=== PATIENT | male | born 1945 | race Caucasian/White ===

== ENCOUNTER 2023-12-30 17:12 | Emergency (ER) | payer MEDICARE, OTHER, SELFPAY ==
[2023-12-30 17:14] VITALS: BP 130/65
[2023-12-30 17:17] VITALS: BP 130/65
--- NOTE | 2023-12-30 17:41 | ED.GENMED ---
History of Present Illness
General
Chief Complaint: Breathing Problem
Source: patient
Exam Limitations: none
Time Seen by Provider: 12/30/23 17:24
Travel History
Have you had any contact with someone who has COVID-19?: No
Do you have any symptoms of coronavirus? Fever > 100 degrees, chills, cough, shortness of breath, sore throat, loss of taste or smell, muscle aches, or headache?: No
History of Present Illness
History of Present Illness:
See MDM
Past History
Past History
ED Past Medical History: CAD and Other (Coronary disease with CABG in 2017, Parkinson's, chronic urinary incontinence, hypercholesterolemia, NPH, orthostatic hypotension, A-fib)
ED Past Surgical History: Cardiac
Social History
Tobacco: Former smoker
Alcohol: Occasional
Drug: None
Living: with family
Employment: Retired
Family History
Family History: Other (Father with [place], family history of Parkinson's)
Phy Exam
Physical Exam
Physical Exam:
See MDM
Scores
Heart Failure Risk
Heart Failure Risk Score: Not Applicable
Course
Orders/Labs/Results
Orders:
Orders
12/30/23 17:38
CR Chest - 2 Views Urgent
Comment:
Reason For Exam: SOB, cough
12/30/23 18:18
COVID-19 Antigen Urgent
Source: Nasal Swab
Complete Blood Count/With Diff Urgent
Comprehensive Metabolic Panel Urgent
Influenza A+B Rapid Molecular Urgent
SHEYLA Source: Nasal Swab
Specimen Description:
Abnormal Lab Results
12/30/23
18:18
RBC 4.45 L 10^6/uL
(4.70-6.10)
Hct 38.6 L %
(39.0-52.0)
BUN 21 H mg/dl
(9-20)
ALT 54 H U/L
(0-50)
Alkaline Phosphatase 137 H U/L
(38-126)
12/30/23 18:18
12/30/23 18:18
Vital Signs
Initial and Last Documented VS:
Initial Vital Signs
Temp Pulse Resp BP Pulse Ox
98.2 F 65 23 130/65 99
12/30/23 17:14 12/30/23 17:14 12/30/23 17:14 12/30/23 17:14 12/30/23 17:14
Last Documented Vital Signs
Temp Pulse Resp BP Pulse Ox
98.2 F 60 19 140/73 97
12/30/23 17:14 12/30/23 19:21 12/30/23 19:21 12/30/23 19:21 12/30/23 19:21
MDM/Problems Addressed
Differential Diagnosis Includes:
HPI and MDM Narrative:
78-year-old male presenting with shortness of breath. Per EMS, patient had an argument with his and then patient became upset and short of breath. Patient demanding nasal cannula. When he arrived, he appears well appearing and nontoxic.
Lungs are clear. Patient is upset that he cannot breathe but he is speaking in full sentences. He has no leg edema. Given his issues, will obtain chest x-ray and blood work
Physical exam
General: Well appearing and non-toxic
HEENT: protecting airway
Neck: appears supple
CV: No evidence of cyanosis. Regular rate and rhythm
Resp: No accessory muscle use. Lungs clear
Abd: Non-distended
Extremities: No deformities. No leg edema
Neuro: alert
Psych: Normal affect
Skin: Intact
Problems Addressed including Acute and Chronic Conditions affecting care:
1. Shortness of breath
Acuity: acute
Prognosis: stable
Details: Lungs are clear. Will obtain chest x-ray and viral testing and will EKG
Updates
On reevaluation, patient feeling better. Chest x-ray clear. Blood work without clinical significance. Patient feels comfortable going home
Differential Diagnosis (but not limited to): Pneumonia, viral syndrome, anxiety
Testing considered: D-dimer but he is neither tachycardic nor hypoxic
Drug therapy (if applicable): OTC meds, please see d/c instruction regarding Rx drugs
Amount and/or Complexity of Data Reviewed
Clinical info obtained from: Patient
External data reviewed: N/A
Labs I independently reviewed (but not limited to): No leukocytosis
Radiology: N/A
Pulse Ox: not hypoxic
EKG independently reviewed: N/A
Corporate Scheduler: Sinus rhythm
Critical Care: N/A
Risk of Complication:
Social Determinants of health: Good social support
Discussed with other providers: N/A
Escalation of Care includes Admit/Obs: After being observed in the Emergency Department, pt stable for discharge.
Occasional wrong word or 'sound a like' substitutions may have occurred due to the inherent limitations of voice recognition software. Read the chart carefully and recognize, using context, where substitutions have occurred.
*Critical Care Note
Total Time (30-74mins, 75-104mins- exclusive of procedures): Not Applicable
ED Attending Note
-
Portions of this chart may have been created with voice recognition software.� Occasional wrong word or��sound alike� substitutions may have occurred due to the inherent limitations of voice recognition software.
Discharge Plan
Departure
Patient Disposition: Home (Routine Discharge)
Date of Disposition: 12/30/23
Time of Disposition: 19:41
Patient with high blood pressure during this ER visit?: Yes
Discharge Problem:
Dyspnea
Instructions: Shortness of Breath (Dyspnea) (DC), BLOOD PRESSURE
Prescriptions:
No Action
aspirin 81 MG tablet,chewable
81 mg PO DAILY
midodrine 10 MG tablet
10 mg PO TID
donepezil 10 MG tablet
10 mg PO HS
cholecalciferol (vitamin D3) 2,000 UNITS tablet
2,000 units PO DAILY
atorvastatin 20 mg tablet
20 mg PO DAILY
acetaminophen 500 mg Tablet
1,000 mg PO TIDPRN PRN (Reason: MILD PAIN)
escitalopram oxalate 20 mg tablet
15 mg PO HS
tamsulosin 0.4 MG capsule
0.4 mg PO DAILY
memantine 10 MG tablet
10 mg PO BID
polyethylene glycol 3350 [Miralax] 17 gram Powder In Packet
17 g PO DAILYPRN PRN (Reason: constipation)
amiodarone 200 mg Tablet
200 mg PO DAILY
Rx Instructions:
TAKE BID THRU 10/31/23 THEN CHANGE TO ONCE DAILY ON 11/01/23
Referrals:
Elisa Patricia PA [Family Provider] -
Activity Restrictions/Additional Instructions:
Please return for any worsening symptoms.
You may return at any time if you have further concerns.
Please follow up with your doctor at the first available appointment, preferably this week.
Thank you for choosing [facility].
Interventions
Interventions:
*Risk Screen - Suicide Last Done: 12/30/23 17:22
*General Assessment Last Done: 12/30/23 17:20
*Neglect/Abuse Screening Last Done: 12/30/23 17:22
ED- Cardiac Assessment Last Done: 12/30/23 17:28
ED- Pulmonary Assessment Last Done: 12/30/23 17:28
[2023-12-30 18:00] VITALS: BP 135/73
[2023-12-30 18:39] LABS: % Basophils 0.8 % (0-2); % Eosinophils 2.3 % (0-6); % Immature Granulocytes 0.2 % (0-0.5); % Lymphocytes 26.9 % (20.5-51.1); % Monocytes 8.2 % (1.7-9.3); % Neutrophils 61.6 % (42.2-75.2); Absolute Basophils 0.1 10^3/uL (0-0.2); Absolute Eosinophils 0.1 10^3/uL (0-0.7); Absolute Lymphocytes 1.6 10^3/uL (1.2-3.4); Absolute Monocytes 0.5 10^3/uL (0.1-0.6); Absolute Neutrophils 3.7 10^3/uL (1.4-6.5); Hematocrit 38.6 % (39.0-52.0); Hemoglobin 13.2 g/dL (13.0-18.0); Mean Corp Hgb Conc. 34.2 g/dL (33.0-37.0); Mean Corpuscular Hgb 29.7 pg (27.0-31.0); Mean Corpuscular Volume 86.7 fL (80.0-94.0); Nucleated Red Blood Cells % 0 % (-); Platelet Count 231 10^3/uL (130-400); Red Blood Cell Count 4.45 10^6/uL (4.70-6.10); Red Cell Dist. Width 14.1 % (11.5-14.5); White Blood Cell Count 6.1 10^3/uL (4.8-10.8)
[2023-12-30 18:50] LABS: ALT (SGPT) 54 U/L (0-50); AST (SGOT) 41 U/L (17-59); Albumin 4.2 g/dl (3.5-5.0); Alkaline Phosphatase 137 U/L (38-126); Blood Urea Nitrogen 21 mg/dl (9-20); Calcium 9.1 mg/dl (8.4-10.2); Carbon Dioxide 24 mmol/L (22-30); Chloride 106 mmol/L (98-107); Glucose 93 mg/dl (70-99); Potassium 4.3 mmol/L (3.5-5.1); Sodium 137 mmol/L (135-145); Total Bilirubin 0.8 mg/dl (0.2-1.3); Total Protein 7.7 g/dl (6.3-8.2); eGFR > 60.00
[2023-12-30 19:03] LABS: COVID-19 Antigen Negative (Negative)
[2023-12-30 19:21] VITALS: BP 140/73
== END 2023-12-31 00:30 ==
LOC: EMR 17:12
PROVIDERS: EMERGENCY PHYSICIAN Student in an Organized Health Care Education/Training Program; FAMILY PHYSICIAN Physician Assistant Medical
DX: R06.00 Dyspnea, unspecified (principal); R06.02 Shortness of breath; Z11.52 Encounter for screening for COVID-19; Z87.891 Personal history of nicotine dependence
CPT/HCPCS: 99284; 71046; 80053; 85025; 87502; 87811

== ENCOUNTER 2024-01-02 13:06 | Emergency (ER) | payer MEDICARE, OTHER, SELFPAY ==
[2024-01-02 13:09] VITALS: BMI 25.8
[2024-01-02 13:10] VITALS: BP 130/76
[2024-01-02 13:22] VITALS: BP 123/71
[2024-01-02 13:44] LABS: % Basophils 1.4 % (0-2); % Eosinophils 3.5 % (0-6); % Immature Granulocytes 0.3 % (0-0.5); % Lymphocytes 20.4 % (20.5-51.1); % Monocytes 9.6 % (1.7-9.3); % Neutrophils 64.8 % (42.2-75.2); Absolute Basophils 0.1 10^3/uL (0-0.2); Absolute Eosinophils 0.2 10^3/uL (0-0.7); Absolute Lymphocytes 1.2 10^3/uL (1.2-3.4); Absolute Monocytes 0.6 10^3/uL (0.1-0.6); Absolute Neutrophils 3.8 10^3/uL (1.4-6.5); Hematocrit 40.1 % (39.0-52.0); Hemoglobin 13.5 g/dL (13.0-18.0); Mean Corp Hgb Conc. 33.7 g/dL (33.0-37.0); Mean Corpuscular Hgb 29.7 pg (27.0-31.0); Mean Corpuscular Volume 88.1 fL (80.0-94.0); Nucleated Red Blood Cells % 0 % (-); Platelet Count 221 10^3/uL (130-400); Red Blood Cell Count 4.55 10^6/uL (4.70-6.10); Red Cell Dist. Width 14.3 % (11.5-14.5); White Blood Cell Count 5.9 10^3/uL (4.8-10.8)
[2024-01-02 13:52] LABS: D-Dimer 1.11 ug/mlFEU (0.00-0.50)
[2024-01-02 13:54] LABS: ALT (SGPT) 43 U/L (0-50); AST (SGOT) 32 U/L (17-59); Albumin 4.1 g/dl (3.5-5.0); Alkaline Phosphatase 119 U/L (38-126); Blood Urea Nitrogen 26 mg/dl (9-20); Calcium 9.5 mg/dl (8.4-10.2); Carbon Dioxide 25 mmol/L (22-30); Chloride 103 mmol/L (98-107); Estimated Creatinine Clearance 65 ml/min; Glucose 83 mg/dl (70-99); Potassium 3.7 mmol/L (3.5-5.1); Sodium 137 mmol/L (135-145); Total Bilirubin 0.7 mg/dl (0.2-1.3); Total Protein 7.6 g/dl (6.3-8.2); eGFR > 60.00
[2024-01-02 14:00] VITALS: BP 115/58
[2024-01-02 14:07] LABS: NT-proBNP 52.8 pg/ml; Troponin I 0.055 ng/ml
[2024-01-02 15:00] VITALS: BP 120/71
--- NOTE | 2024-01-02 15:25 | ED.GENMED ---
History of Present Illness
General
Chief Complaint: Breathing Problem
Source: patient, records, family, previous radiology exam and previous hospital records
Exam Limitations: dementia
Time Seen by Provider: 01/02/24 14:28
Nursing documentation reviewed up to this point in time: agreed with
Travel History
Have you had any contact with someone who has COVID-19?: No
Do you have any symptoms of coronavirus? Fever > 100 degrees, chills, cough, shortness of breath, sore throat, loss of taste or smell, muscle aches, or headache?: No
History of Present Illness
History of Present Illness:
78-year-old male accompanied by daughter who is the patient's advocate knows his medical history very well, presents with shortness of breath intermittent for few months told that he had either infection or malignancy, underwent a bronchoscopy
apparently was inconclusive, he has intermittent shortness of breath, sometimes with exertion sometimes not, no wheezing no chest pains, no leg edema no fevers no hemoptysis not on any inhalers he is an ex-smoker, seen here few days ago similar
complaints discharged home, daughter is with him now requesting a CAT scan as recommended by pulmonary apparently the patient did not want nor tolerate a PET scan
Past History
Past History
ED Past Medical History: CAD and Other (Coronary disease with CABG in 2017, Parkinson's, chronic urinary incontinence, hypercholesterolemia, NPH, orthostatic hypotension, A-fib)
ED Past Surgical History: Cardiac
Social History
Tobacco: Former smoker
Alcohol: Occasional
Drug: None
Personal:
Living: with family
Employment: Retired
Family History
Family History: Other (Father with [place], family history of Parkinson's)
Review of Systems
Review of Systems
All Other Systems: Not applicable
Constitutional: Denies fever or fatigue
Respiratory: Reports trouble breathing; Denies cough
Cardiac: Reports no symptoms
: Reports no symptoms
Musculoskeletal: Reports no symptoms
Skin: Reports no symptoms
Neurological: Reports no symptoms
Phy Exam
Physical Exam
Physical Exam:
Physical Exam
General: Pleasant 78-year-old male cooperative
Neck: No jaundice
Heart: Rate
Lungs: no acute respiratory distress. clear bilaterally
Abdomen: Nontender
Neuro: alert and oriented. Moves all extremities
Skin: no rash
Psychiatric: cooperative
Extremities: no edema.
Scores
Heart Failure Risk
Heart Failure Risk Score: Not Applicable
Course
Orders/Labs/Results
Orders:
Orders
01/02/24 13:17
EKG [Electrocardiogram (*1)] Urgent
Reason for Study: Shortness of Breath
EKG- Treatment ONCE
01/02/24 13:26
BNP [NT-proBNP] Urgent
Complete Blood Count/With Diff Urgent
Comprehensive Metabolic Panel Urgent
D-Dimer Urgent
Troponin I Urgent
01/02/24 15:01
Add On- LAB Urgent
Tests Added?: pBNP
CT Chest With Iv Contrast Urgent
Comment:
Reason For Exam: sob lung nodule
Abnormal Lab Results
01/02/24
13:26
RBC 4.55 L 10^6/uL
(4.70-6.10)
Lymphocytes % 20.4 L %
(20.5-51.1)
Monocytes % 9.6 H %
(1.7-9.3)
D-Dimer 1.11 H ug/mlFEU
(0.00-0.50)
BUN 26 H mg/dl
(9-20)
Troponin I 0.055 H* ng/ml
01/02/24 13:26
01/02/24 13:26
Vital Signs
Initial and Last Documented VS:
Initial Vital Signs
Temp Pulse Resp BP Pulse Ox
97.6 F 61 17 130/76 99
01/02/24 13:10 01/02/24 13:10 01/02/24 13:10 01/02/24 13:10 01/02/24 13:10
Last Documented Vital Signs
Temp Pulse Resp BP Pulse Ox
97.6 F 63 16 117/71 98
01/02/24 13:10 01/02/24 17:00 01/02/24 17:00 01/02/24 17:00 01/02/24 17:00
MDM/Problems Addressed
Differential Diagnosis Includes:
Progressive malignancy infection heart failure doubt PE as symptoms are intermittent
MDM/Problems Addressed:
Shortness of
Chronic conditions affecting care:
Prior smoker dementia
Acute Exacerbation and/or Progression of Chronic Illness:
Prior smoker dementia
*Radiology
Radiology exam reviewed: preliminary read by ED provider
*Pulse Oximetry
Patient hypoxic: no
*EKG
Interpreted by ED Provider?: Yes
Interpretation: abnormal
Comparison EKG: no comparison EKG present
Heart Rate: 88
Rate: normal
Rhythm: ventricular paced
Ischemia: non-specific ST changes
*Interviewing Clerk Interpretation
Rate: normal
Interpretation: normal
Heart Rate: 88
Rhythm: ventricular paced
*Critical Care Note
Total Time (30-74mins, 75-104mins- exclusive of procedures): Not Applicable
Data Reviewed
Review of Other/Old Records Reveals: Labs and Records
Source: patient, records and family
Update Note
Update Note:
Update patient appears well here etiology not entirely clear, daughter requesting a CAT scan to look for progressive disease which is not unreasonable pulmonary notes previously visits reviewed
5:[address] looks improved to my review of the report, reviewed with the daughter given copies to have a appointment with the primary care at [facility] on Thursday
ED Attending Note
-
Portions of this chart may have been created with voice recognition software.� Occasional wrong word or��sound alike� substitutions may have occurred due to the inherent limitations of voice recognition software.
Discharge Plan
Departure
Patient Disposition: Home (Routine Discharge)
Date of Disposition: 01/02/24
Time of Disposition: 17:44
Patient with high blood pressure during this ER visit?: No
Condition: Good
Covid-19: Not Applicable
Discharge Problem:
Dyspnea
Instructions: Shortness of Breath (Dyspnea) (DC)
Prescriptions:
No Action
aspirin 81 MG tablet,chewable
81 mg PO DAILY
midodrine 10 MG tablet
10 mg PO TID
donepezil 10 MG tablet
10 mg PO HS
cholecalciferol (vitamin D3) 2,000 UNITS tablet
2,000 units PO DAILY
atorvastatin 20 mg tablet
20 mg PO DAILY
acetaminophen 500 mg Tablet
1,000 mg PO TIDPRN PRN (Reason: MILD PAIN)
escitalopram oxalate 20 mg tablet
15 mg PO HS
tamsulosin 0.4 MG capsule
0.4 mg PO DAILY
memantine 10 MG tablet
10 mg PO BID
polyethylene glycol 3350 [Miralax] 17 gram Powder In Packet
17 g PO DAILYPRN PRN (Reason: constipation)
amiodarone 200 mg Tablet
200 mg PO DAILY
Rx Instructions:
TAKE BID THRU 10/31/23 THEN CHANGE TO ONCE DAILY ON 11/01/23
Referrals:
Elisa Patricia PA [Family Provider] -
Ranjana Patricia MD [Non-Admitting Privileges] - Keep scheduled appt
Interventions
Interventions:
*Risk Screen - Suicide Last Done: 01/02/24 13:15
*General Assessment Last Done: 01/02/24 13:18
*Neglect/Abuse Screening Last Done: 01/02/24 13:15
ED- Fall Risk Assessment Last Done: 01/02/24 13:16
*ED COVID-19 Vaccine History Last Done: 01/02/24 13:10
ED- Cardiac Assessment Last Done: 01/02/24 13:20
ED- Pulmonary Assessment Last Done: 01/02/24 13:20
[2024-01-02 17:00] VITALS: BP 117/71
== END 2024-01-02 18:02 | disposition home or self-care (01) ==
LOC: EMR 13:06
PROVIDERS: Emergency Medicine; EMERGENCY PHYSICIAN Emergency Medicine; FAMILY PHYSICIAN Physician Assistant Medical
DX: R06.00 Dyspnea, unspecified (principal); R06.02 Shortness of breath; F02.80 Dementia in other diseases classified elsewhere, unspecified severity, without behavioral disturbance, psychotic disturbance, mood disturbance, and anxiety; Z87.891 Personal history of nicotine dependence
CPT/HCPCS: 99285; 71260; 80053; 83880; 84484; 85025; 85379; 93005; Q9967

== ENCOUNTER 2024-02-25 09:30 | Emergency (ER) | payer MEDICARE, OTHER, SELFPAY ==
[2024-02-25 09:33] VITALS: BMI 25.5
[2024-02-25 09:41] VITALS: BP 128/86
--- NOTE | 2024-02-25 10:49 | ED.GENMED ---
History of Present Illness
General
Chief Complaint: Anxiety
Source: patient
Exam Limitations: none
Time Seen by Provider: 02/25/24 09:46
Travel History
Have you had any contact with someone who has COVID-19?: No
Do you have any symptoms of coronavirus? Fever > 100 degrees, chills, cough, shortness of breath, sore throat, loss of taste or smell, muscle aches, or headache?: No
History of Present Illness
History of Present Illness:
78-year-old male with history of Parkinson and dementia presents via EMS from [facility] after a panic attack. He states he could not find his phone this morning that he did not have his book. He got worked up and started to have a panic
attack. He admits to not enjoying the facility he lives in. Daughter is in the room who states he does this frequently. He is on Ativan twice a day for anxiety. He states during the time my exam he feels back to normal he denies any chest pain
shortness of breath or anxiety.
Past History
Past History
ED Past Medical History: CAD and Other (Coronary disease with CABG in 2017, Parkinson's, chronic urinary incontinence, hypercholesterolemia, NPH, orthostatic hypotension, A-fib)
ED Past Surgical History: Cardiac
Social History
Tobacco: Former smoker
Alcohol: Occasional
Drug: None
Personal:
Living: with family
Employment: Retired
Family History
Family History: Other (Father with [place], family history of Parkinson's)
Phy Exam
Physical Exam
Physical Exam:
General: Well-appearing male no acute respiratory distress
HEENT: Normocephalic atraumatic
Heart: Regular rate and rhythm no murmurs lungs: Clear to auscultation bilaterally no wheezing
Abdomen: Soft nontender nondistended no guarding rebound normal bowel sound
Extremities: No cyanosis or edema
Skin: Warm no rash
Course
Vital Signs
Initial and Last Documented VS:
Initial Vital Signs
Resp
16
02/25/24 09:33
Last Documented Vital Signs
Temp Pulse Resp BP Pulse Ox
97.8 F 63 17 128/86 95
02/25/24 09:41 02/25/24 09:41 02/25/24 09:41 02/25/24 09:41 02/25/24 09:41
MDM/Problems Addressed
Differential Diagnosis Includes:
Patient self-admittedly had a panic attack but currently is back to baseline denies any chest tightness palpitation shortness of breath. Nontoxic stable vital signs. He does have a history of cardiac disease
*Critical Care Note
Total Time (30-74mins, 75-104mins- exclusive of procedures): Not Applicable
Update Note
Update Note:
Patient has remained nontoxic with stable vital signs throughout his stay. I reviewed prior records. He has had full workups in the past including CT scan. All these were considered but negative. Symptoms consistent with panic attack that is
resolved. Stable for discharge
ED Attending Note
-
Portions of this chart may have been created with voice recognition software.� Occasional wrong word or��sound alike� substitutions may have occurred due to the inherent limitations of voice recognition software.
Discharge Plan
Departure
Patient Disposition: Home (Routine Discharge)
Date of Disposition: 02/25/24
Time of Disposition: 10:55
Patient with high blood pressure during this ER visit?: No
Discharge Problem:
Panic attack
Instructions: Anxiety, Adult (DC)
Prescriptions:
No Action
aspirin 81 MG tablet,chewable
81 mg PO DAILY
midodrine 10 MG tablet
10 mg PO TID
donepezil 10 MG tablet
10 mg PO HS
cholecalciferol (vitamin D3) 2,000 UNITS tablet
2,000 units PO DAILY
atorvastatin 20 mg tablet
20 mg PO DAILY
acetaminophen 500 mg Tablet
1,000 mg PO TIDPRN PRN (Reason: MILD PAIN)
escitalopram oxalate 20 mg tablet
15 mg PO HS
tamsulosin 0.4 MG capsule
0.4 mg PO DAILY
memantine 10 MG tablet
10 mg PO BID
polyethylene glycol 3350 [Miralax] 17 gram Powder In Packet
17 g PO DAILYPRN PRN (Reason: constipation)
amiodarone 200 mg Tablet
200 mg PO DAILY
Rx Instructions:
TAKE BID THRU 10/31/23 THEN CHANGE TO ONCE DAILY ON 11/01/23
Referrals:
Ranjana Patricia MD [Family Provider] -
Activity Restrictions/Additional Instructions:
Please continue current medication regimen. Return if worse otherwise
Interventions
Interventions:
*Risk Screen - Suicide Last Done: 02/25/24 09:33
*General Assessment Last Done: 02/25/24 09:33
*Neglect/Abuse Screening Last Done: 02/25/24 09:33
*ED COVID-19 Vaccine History Last Done: 02/25/24 09:33
ED-Psychological Assessment Last Done: 02/25/24 09:33
Discharge Date and Time
Print Language: SLOVENIAN
== END 2024-02-25 11:07 | disposition home or self-care (01) ==
LOC: EMR 09:30
PROVIDERS: EMERGENCY PHYSICIAN Emergency Medicine; FAMILY PHYSICIAN Internal Medicine Geriatric Medicine
DX: F41.0 Panic disorder [episodic paroxysmal anxiety] (principal); F02.84 Dementia in other diseases classified elsewhere, unspecified severity, with anxiety; G20.A1 Parkinson's disease without dyskinesia, without mention of fluctuations; Z87.891 Personal history of nicotine dependence
CPT/HCPCS: 99283